=== PATIENT | male | born 1970 | race Caucasian/White ===

== ENCOUNTER 2018-04-23 08:16 | Outpatient (CLI) | payer OTHER ==
[2018-04-23 09:25] LABS: Hemoglobin 14.1 g/dL (14.0-18.0); Mean Corpuscular HGB CONC 33.1 g/dL (32.0-36.0); Mean Corpuscular Hemoglobin 28.5 pg (27.0-31.0); Mean Platelet Volume 6.6 fL (7.4-10.4); Platelet Count 326 thou/uL (130-400); RBC Distribution Width 12.5 % (11.5-14.5); Red Blood Cell (RBC) Count 4.94 mill/uL (4.70-6.10); White Blood Cell (WBC) Count 6.4 thou/uL (4.8-10.8)
[2018-04-23 09:41] LABS: Anion Gap 15 mmol/L (10-20); BUN (Urea Nitrogen) 10 mg/dL (8.9-20.6); Calc. Creatinine Clearance 0 mL/min (70-130); Calcium 8.7 mg/dL (7.8-10.44); Carbon Dioxide 27 mmol/L (22-29); Chloride 105 mmol/L (98-107); Estimated GFR-MDRD 78; Glucose 93 mg/dL (70-105); Sodium 142 mmol/L (136-145)
[2018-04-23 09:44] LABS: INR-International Normal Ratio 0.9; PTT 29.5 SEC (22.9-36.1); Prothrombin Time 12.2 SEC (12.0-14.7)
[2018-04-23 10:13] LABS: Bilirubin Negative (Negative); Blood, Urine Moderate (Negative); Clarity CLEAR (Clear); Glucose, Urine (Dipstick) Negative (Negative); Leukocyte Moderate (Negative); Nitrite Negative (Negative); Protein, Urine (Dipstick) Trace mg/dL (Neg-Trace); Specific Gravity, Urine 1.015 (1.002-1.036); Urobilinogen 0.2 mg/dL (0.2-1.0); pH, Urine 7.5 (5.0-9.0)
[2018-04-23 10:17] LABS: Bacteria/HPF Rare-Few HPF (None Seen); Hyaline Casts/LPF 0-3 HYALINE CAST LPF (0-3 Hyaline); RBC/HPF 21-50 HPF (0-3); Squamous Epithelial None Seen HPF (0-3); WBC/HPF 21-50 HPF (0-3)
--- NOTE | 2018-04-23 12:29 | EKG ---
Test Reason : Blood Pressure : / mmHG Vent. Rate : 048 BPM Atrial Rate : 048 BPM P-R Int : 156 ms QRS Dur : 090 ms QT Int : 414 ms P-R-T Axes : 057 059 056 degrees QTc Int : 369 ms Marked sinus bradycardia Abnormal ECG No previous ECGs available Confirmed by LISSA BECK, DR. Samano ([id number]) on 04/23/2018 12:29:10 PM Referred By: EVERARDO Confirmed By:DR. Selwyn ALCARAZ MD
== END 2018-04-23 08:17 | disposition home or self-care (01) ==
LOC: LABBT 08:16
PROVIDERS: ATTEND Urology
DX: Z01.818 Encounter for other preprocedural examination (principal); N20.0 Calculus of kidney; R31.9 Hematuria, unspecified; R00.1 Bradycardia, unspecified
CPT/HCPCS: 80048; 81001; 85027; 85610; 85730; 87086; 93005; 93010

== ENCOUNTER 2018-05-06 05:57 | Day surgery (SDC) | payer OTHER ==
[2018-04-23 08:34] VITALS: BMI 21.3
[2018-05-06] MEDS ORDERED: Glycopyrrolate 0.2 MG/ML 5 ML SYRINGE ONE (06:59)
[2018-05-06] MEDS ORDERED: Ondansetron HCl/PF 4 MG/2 ML Vial ONE (06:59)
[2018-05-06] MEDS ORDERED: Ketorolac Tromethamine 30 MG/ML VIAL ONE (06:59)
[2018-05-06] MEDS ORDERED: Lidocaine 1% PF 5 ML VIAL ONE (06:59)
[2018-05-06] MEDS ORDERED: Midazolam HCl 2 mg/2 ml Vial ONE ×2 (06:59→07:10)
[2018-05-06] MEDS ORDERED: PROPOFOL 200 MG/20 ML VIAL ONE (06:59)
[2018-05-06] MEDS ORDERED: Levofloxacin 500 mg/D5W 100 ml Premix Bag ONE (06:59)
[2018-05-06] MEDS ORDERED: Fentanyl 100 MCG/2 ML VIAL ONE (07:10)
[2018-05-06] MEDS ORDERED: Iothalamate Meglumine 60% 50 ML VIAL FS ONE (07:14)
[2018-05-06] MEDS ORDERED: Phenazopyridine HCl 97.5 MG TABLET ONE (09:20)
--- NOTE | 2018-05-06 09:28 | RAD ---
AP ABDOMINAL RADIOGRAPH: Date: 05/06/18 HISTORY: Right renal stone. FINDINGS: There are calcifications overlying the inferior pole right renal shadow, as well as suggestion of yoshi cification overlying the expected location of the right renal pelvis suggesting right renal calculi. Left renal shadow is mostly obscured by bowel gas, but there is a punctate density overlying the left renal shadow which may represent a tiny calculus. Multiple calcifications overlie the pelvis, likely related to phleboliths. Bowel gas pattern is nonspecific. Osseous structures are intact. IMPRESSION: Right nephrolithiasis with probable left nephrolithiasis. POS: LEONIDES
--- NOTE | 2018-05-06 10:23 | RAD ---
RIGHT RETROGRADE PYELOGRAM: Date: 05/06/18 HISTORY: Hematuria, stent placement. FINDINGS/IMPRESSION: Five fluoroscopic images of the abdomen and pelvis during a right retrograde pyelogram demonstrate op acification of the right pelvicaliceal system and ureter with contrast and final placement of right u reteral stent. The proximal end is incompletely looped. POS: KATHY
[2018-05-06] MEDS ORDERED: HYDROcodone/Acetaminophen 5/325 mg Tablet ONE (10:26)
--- NOTE | 2018-05-06 10:28 | OP ---
DATE OF PROCEDURE: 05/06/2018 PREOPERATIVE DIAGNOSES: This is a 47-year-old male with, 1. A history of recurrent kidney stones, right renal lithiasis, renal pelvic stone 8 mm, lower pole 6 mm, punctate lower pole x2. 2. Left 6 mm, mid pole stone. POSTOPERATIVE DIAGNOSES: This is a 47-year-old male with, 1. A history of recurrent kidney stones, right renal lithiasis, renal pelvic stone 8 mm, lower pole 6 mm, punctate lower pole x2. 2. Left 6 mm, mid pole stone. PROCEDURES: Cystoscopy, right retrograde pyelogram, dilation of right intramural ureter, flexible ureteroscopy, pyeloscopy, laser lithotripsy of multiple renal calculi, basket extraction of stone fragments, 6 x 28 double-J ureteral stent placement with dangler in situ taped to the patient's penis. SURGEON: Liss Birch D.O. ANESTHESIA: General. COMPLICATIONS: None apparent. DISPOSITION: To recovery room in stable condition. SPECIMEN: Stone fragments for chemical analysis. INDICATIONS FOR PROCEDURE AND HISTORY: Mr. Deshpande is a 47-year-old male, who presented for evaluation of recurrent kidney stone. CT demonstrates stone dimensions as above. He desired to proceed with elective treatment of his right multiple renal lithiasis. He has been offered various treatment options including ESWL, ureteroscopy, laser lithotripsy, PCNL was not indicated. Relative stone free rates as well as relative risks and complications were reviewed. He desired more definitive treatment with ureteroscopy, laser lithotripsy. Possible secondary procedure was reviewed. Risks and complications including, but not limited to, bleeding, pain, infection , injury to adjacent organs such as ureter, kidney, bladder, stricture formation , possible secondary procedure was reviewed with him in detail and he desired to proceed without reservation. DESCRIPTION OF THE PROCEDURE: After informed consent was signed, the patient was taken to the operating room, placed in a dorsal lithotomy position with the genital area prepped and draped in the usual surgical sterile fashion. Broad- spectrum antibiotics were provided. Bilateral LEATHA hose, SCDs placed, and a 21- Iraqi cystoscope was utilized. The anterior and posterior urethra was within normal limits with no significant obstructing component from the prostatic urethra. The bladder was entered, which demonstrated unremarkable findings. The UO was identified in normal orthotopic position. At this time, the right UO was identified and a 5-Iraqi open-ended catheter was utilized to perform a retrograde pyelogram with 1:1 diluted contrast, which demonstrated unremarkable right ureter, kidney. A filling defect in the renal pelvis consistent with a moderate-sized renal pelvic stone was appreciated. A 0.35 sensor wire was then placed in the right upper pole. A 12-Iraqi 4-cm [employer] balloon dilator was utilized to dilate the intramural ureter over the guidewire with ease. Subsequently, I was able to pass a 10-Iraqi dual-lumen access sheath to the level of the right renal proximal ureter without difficulty. A second safety wire, 0.35-Super Stiff wire was then placed. At this time, an 11/13- Iraqi x 46 cm navigator was passed. This passed without significant issues. This was placed to the level of the proximal ureter and a flexible ureteroscope was advanced with pressure irrigation. The stone was directly visualized, placed into the right upper pole. The lower pole stone was visualized. The other punctate stone seen on CT was unable to be identified in the collecting system. At this time, using a 200 micron laser fiber at the setting, we laser lithotripsied both upper and lower pole stone without difficulty. The stone appeared quite soft. I did retrieve some fragments for chemical analysis. What remained were dust-like particles, too small to basket or laser. We surveyed the ureter, which demonstrated no evidence of mucosal trauma. The ureter was without any evidence of mucosal trauma. The navigator was then completely removed. A 6 x 28 double-J ureteral stent was passed without difficulty. As there is endoscopic clearance, dangler was left, taped to the patient's penis with Tegaderm. He tolerated the procedure well and transferred to the recovery room in stable condition. He will follow up with me a week from today for stent pull and dangler. He is discharged with antibiotic, ciprofloxacin, until followup appointment, Azo, Colace, Flomax, [place] 5/325 p.r.n. MTDD
[2018-05-08 18:12] LABS: CA Oxalate Dihydrate 80 % (.); CA Oxalate Monohydrate 10 % (.); CA Phosphate 10 % (.); Color Tan (.); Comment Note: (.); Stone Size 2x1x1 mm (.)
== END 2018-05-06 10:41 | disposition home or self-care (01) ==
LOC: SDC 05:57
PROVIDERS: ATTEND Urology
PROC: 0T768DZ Dilation of Right Ureter with Intraluminal Device, Via Natural or Artificial Opening Endoscopic (ICD-10-PCS; principal; 2018-05-06)
PROC: BT1DYZZ Fluoroscopy of Right Kidney, Ureter and Bladder using Other Contrast (ICD-10-PCS; principal; 2018-05-06)
PROC: 0TC38ZZ Extirpation of Matter from Right Kidney Pelvis, Via Natural or Artificial Opening Endoscopic (ICD-10-PCS; principal; 2018-05-06)
DX: N20.0 Calculus of kidney (principal); R31.0 Gross hematuria; Z87.891 Personal history of nicotine dependence; Z87.442 Personal history of urinary calculi; Z79.899 Other long term (current) drug therapy; Z88.1 Allergy status to other antibiotic agents
CPT/HCPCS: 74018; 74420; 82365; 88300; C1758; C1769; J1885; J1956; J2001; J2250; J2405; J2704; J3010; Q9961

== ENCOUNTER 2018-06-17 12:34 | Outpatient (CLI) | payer OTHER ==
[2018-06-17 13:04] LABS: Bilirubin Negative (Negative); Blood, Urine Negative (Negative); Clarity CLOUDY (Clear); Glucose, Urine (Dipstick) Negative (Negative); Leukocyte Small (Negative); Nitrite Negative (Negative); Protein, Urine (Dipstick) 100 mg/dL (Neg-Trace); Urobilinogen 0.2 mg/dL (0.2-1.0)
[2018-06-17 13:06] LABS: Bacteria/HPF None Seen HPF (None Seen); Pathc Cast-AUWi Flag 2.47 (0-2.49); RBC/HPF 0-3 HPF (0-3); Squamous Epithelial 0-3 HPF (0-3)
[2018-06-17 13:21] LABS: Hyaline Casts/LPF 0-3 HYALINE CAST LPF (0-3 Hyaline); Renal Epithelial None Seen HPF (0-3); Transitional Epithelial NONE SEEN HPF (0-3)
--- NOTE | 2018-06-17 15:56 | CT ---
CT ABDOMEN AND PELVIS PERFORMED WITHOUT CONTRAST ENHANCEMENT: HISTORY: Renal calculi. Hematuria. COMPARISON: None. FINDINGS: ABDOMEN: The lung bases are clear. Some minimal pericardial calcification is incidentally noted. The liver, spleen, and pancreas regions appear unremarkable. Increased attenuation within the gallbl adder lumen is most compatible with small stones. The right and left adrenal glands are normal in size and appearance. Punctate, nonobstructing, lower pole, right and left renal calculi are seen. No ureteral calculus is seen. No significant periaort ic or mesenteric adenopathy. PELVIS: There are postoperative changes of the cecum and terminal ileum region. The appendix appear s to have been removed. There is no adenopathy, mass, or free fluid. Prostate calcifications are pr esent. IMPRESSION: 1. Gallstones. 2. Small, punctate, nonobstructing lower pole renal calculi. 3. Postoperative changes of the cecum and terminal ileum region. POS: KATHY
== END 2018-06-17 12:35 | disposition home or self-care (01) ==
LOC: CT 12:34
PROVIDERS: ATTEND Urology
DX: N20.0 Calculus of kidney (principal); K80.20 Calculus of gallbladder without cholecystitis without obstruction; Z98.890 Other specified postprocedural states
CPT/HCPCS: 74176; 81001; 87086

== ENCOUNTER 2018-10-25 12:23 | Outpatient (CLI) | payer OTHER ==
--- NOTE | 2018-10-25 14:31 | RAD ---
KUB: DATE: 10/25/2018. COMPARISON: 05/06/2018. HISTORY: Renal calculi. FINDINGS: There are numerous stable calcifications within the pelvis suggesting numerous phleboliths. There is no discrete calcification overlying the renal shadow on either side. There has been no sign ificant interval change when compared to the most recent prior examination. Of note, a CT examinatio n of the abdomen and pelvis performed 06/17/2018 demonstrated punctate calculi within the lower poles which are likely too small to visualize on radiographs. IMPRESSION: No discrete calculi overlie either renal shadow. Please note that small bilateral lower pole renal c alculi were present on 06/17/2018 CT exam. Calcifications in the pelvis are stable and suggest myles us phleboliths. POS: LEONIDES
--- NOTE | 2018-10-25 14:37 | ULT ---
ULTRASOUND RETROPERITONEUM COMPLETE: (RENAL) DATE: 10/25/2018. HISTORY: A 48-year-old male with a history of calculus of kidney. FINDINGS: The right kidney measures 10.5 x 5 x 5 cm. The left kidney measures 10 x 5.5 x 7 cm. Both kidneys h ave normal cortical thickness and normal cortical echogenicity. There is no hydronephrosis. Cursory images of the urinary bladder demonstrate no gross abnormality. No moderate-sized or large cystic o r solid renal mass is identified. Several hyperechoic, nonshadowing foci were measured by the commercial field inspector at the upper, mid, and lower poles of the kidneys. These are probably normal blood vessels rather than representing calculi. The few tiny calculi at bilateral renal lower pole calyces demonstrated on the CT of 06/17/2018, are prob ably too small to see on ultrasound. IMPRESSION: Normal. pantera [] POS: LEONIDES
== END 2018-10-25 12:24 | disposition home or self-care (01) ==
LOC: BICULT 12:23
PROVIDERS: ATTEND Urology
DX: N20.0 Calculus of kidney (principal); M61.5 Other ossification of muscle
CPT/HCPCS: 74018; 76770

== ENCOUNTER 2019-01-02 11:10 | Outpatient (CLI) | payer OTHER ==
--- NOTE | 2019-01-02 11:48 | CT ---
FEXAM:CT abdomen and pelvis performed without contrast: HISTORY: History of renal calculi. Left-sided flank pain. COMPARISON: 06/17/2018 study. FINDINGS:The lung bases are clear. The liver, spleen and pancreas regions are unremarkable. A gallstone is noted. Right and left adrenal glands and right and left kidneys are normal in size. Punctate lower pole righ t renal calculi are noted. The lower pole left renal calculus noted on the previous examination is no longer seen there is no dilatation to the left ureter and there is no evidence of a ureteral calculu s. There is no significant periaortic or mesenteric adenopathy. CT of pelvis performed without contrast enhancement: Postoperative changes of the cecum are noted. Th ere is no evidence of adenopathy, mass or free fluid. Prostate calcifications are present. IMPRESSION: 1. Punctate lower pole right renal calculi. 2. The lower pole left renal calculus noted on the prior examination is not seen on today's examinati on there is no obstruction or ureteral calculi. This calculus may have recently passed.
--- NOTE | 2019-01-02 12:09 | RAD ---
SINGLE VIEW ABDOMEN: Date: 01/02/19 COMPARISON: 10/25/18. HISTORY: Recurrent kidney stones and renal stones. FINDINGS: Single view of the abdomen shows a nonspecific, nonobstructed bowel gas pattern. No calcifications ar e seen projecting over either renal shadow or along the course of the ureters. There are stable phleb oliths in the pelvis. IMPRESSION: No urinary collecting system calculi identified. POS: TPC
[2019-01-02 12:16] LABS: Bilirubin Negative (Negative); Blood, Urine Negative (Negative); Clarity CLEAR (Clear); Glucose, Urine (Dipstick) Negative (Negative); Leukocyte Negative (Negative); Nitrite Negative (Negative); Protein, Urine (Dipstick) Negative (Neg-Trace); Specific Gravity, Urine 1.023 (1.002-1.036); Urobilinogen 0.2 mg/dL (0.2-1.0); pH, Urine 6.5 (5.0-9.0)
[2019-01-02 12:18] LABS: Bacteria/HPF None Seen HPF (None Seen); Hyaline Casts/LPF 0-3 HYALINE CAST LPF (0-3 Hyaline); Pathc Cast-AUWi Flag 0.27 (0-2.49); RBC/HPF 0-3 HPF (0-3); Squamous Epithelial None Seen HPF (0-3)
[2019-01-02 12:23] LABS: Anion Gap 12 mmol/L (10-20); BUN (Urea Nitrogen) 15 mg/dL (8.9-20.6); Calc. Creatinine Clearance 0 mL/min (70-130); Calcium 8.7 mg/dL (7.8-10.44); Carbon Dioxide 31 mmol/L (22-29); Chloride 104 mmol/L (98-107); Estimated GFR-MDRD 79; Glucose 80 mg/dL (70-105); Potassium 3.9 mmol/L (3.5-5.1); Sodium 143 mmol/L (136-145)
--- NOTE | 2019-01-02 12:47 | ULT ---
FRenal ultrasound INDICATION: History of renal stones COMPARISON: Prior CT evaluation dated 01/02/2019. FINDINGS: The right kidney measures 10.5 x 4.9 x 5.0 cm. The left kidney measures 10.4 x 6.4 x 5.4 cm . The prevoid bladder volume was 15.5 cc. No focal renal lesion or hydronephrosis is evident. IMPRESSION: No focal renal lesion or hydronephrosis demonstrated.
== END 2019-01-02 11:11 | disposition home or self-care (01) ==
LOC: CT 11:10 → ULT 11:11
PROVIDERS: ATTEND Urology
DX: N20.0 Calculus of kidney (principal); R35.0 Frequency of micturition
CPT/HCPCS: 36415; 74018; 74176; 76770; 80048; 81001; 87086

== ENCOUNTER 2019-05-31 12:31 | Emergency (ER) | payer OTHER | END 2019-05-31 14:30 | disposition home or self-care (01) | LOC: ERS 12:31 | DX: T63.91XA Toxic effect of contact with unspecified venomous animal, accidental (unintentional), initial encounter (principal) | CPT/HCPCS: 99282 ==